=== PATIENT | male | born 1955 | race Caucasian/White ===

== ENCOUNTER 2016-10-10 20:06 | Emergency (ER) | payer SELFPAY ==
[~2016-10-10] VITALS: Ht 182.9 cm; Wt 113.0 kg
[~2016-10-10 20:06] MED LIST: ALBU2.5I INH; ALBU6.7H INH; ATEN-102 PO; AZEL0.05; DULE100A PO; FURO1TAB93 PO; LISI-366 PO; OMEP40CA2 PO; PAXI20TA PO; POTA20TA3 PO; Z.0.OXYGEN INH; ZOFR4TAB3 PO
[2016-10-10 20:17] VITALS: BP 117/79; PULSE 79; RESP 18; TEMP 99.2; O2SAT 95
[2016-10-10] MEDS ORDERED: LISI40TA PO (20:35)
[2016-10-10] MEDS ORDERED: ASPI325T PO (20:35)
[2016-10-10] MEDS ORDERED: DULE200A INH (20:35)
[2016-10-10] MEDS ORDERED: OMEP40CA2 PO (20:35)
[2016-10-10] MEDS ORDERED: FURO40TA PO (20:35)
[2016-10-10] MEDS ORDERED: ALBU6.7H INH (20:35)
[2016-10-10] MEDS ORDERED: ATEN50TA PO (20:35)
[2016-10-10] MEDS ORDERED: ALBU0.08 NEB (20:35)
[2016-10-10] MEDS ORDERED: CEPH-460 PO (20:51)
[2016-10-10] MEDS ORDERED: IBUP800T23 PO (20:51)
--- NOTE | 2016-10-10 20:52 | PD ---
HPI Chief Complaint: Laceration/Skin Injury Time Seen by Provider: 20:49 Travel History International Travel<30 days: No Contact w/Intl Traveler<30days: No Traveled to known affect area: No History of Present Illness HPI 61-year-old male presents emergency Department with complaint of laceration to his left thumb obtained from a plastic wrap box. He stuck his hand into a drawer and sliced his thumb on the plastic wrap cutter. Paresthesias, loss of sensation or decreased range of motion, decreased strength to the affected finger. Denies fever, chills, nausea, vomiting. Does not know if he is up-to- date on his tetanus vaccination. Has not taken any medications to alleviate his symptoms. Has applied pressure to control bleeding. Denies allergies. No other modifying factors or associated signs and symptoms. PFSH Past Medical History Arthritis: No Asthma: No Anxiety: Yes Depression: Yes Heart Rhythm Problems: No Cancer: No High Cholesterol: Yes Chemotherapy: No Chest Pain: No Congestive Heart Failure: No COPD: Yes Diminished Hearing: No Endocrine: No Gastrointestinal Disorders: Yes GERD: Yes Genitourinary: No Hepatitis: No Hiatal Hernia: No Hypertension: Yes Immune Disorder: No Musculoskeletal: No Neurologic: No Psychiatric: Yes Reproductive: No Respiratory: Yes (COPD) Immunizations Current: Yes Radiation Therapy: No Sleep Apnea: Yes (POSSIBLY) Ulcer: No Tetanus Vaccination: < 5 Years Influenza Vaccination: Yes Past Surgical History Abdominal Surgery: No Body Medical Devices: NONE Cardiac Surgery: No Ear Surgery: No Endocrine Surgery: No Eye Surgery: No Genitourinary Surgery: No Gynecologic Surgery: No Oral Surgery: No Thoracic Surgery: No Other Surgery: Yes (FACE/NECK RECONSTRUCTION) Social History Alcohol Use: Yes (Socially) Tobacco Use: Yes (Occ.) Substance Use: No Allergies-Medications (Allergen,Severity, Reaction): Coded Allergies: No Known Allergies (Unverified , 10/10/16) Reported Meds & Prescriptions Reported Meds & Active Scripts Active Ibuprofen 800 Mg Tab 800 Mg PO Q6HR PRN Keflex (Cephalexin) 500 Mg Cap 500 Mg PO Q8H 7 Days Reported Aspirin 325 Mg Tab 325 Mg PO DAILY Omeprazole 40 Mg Cap 40 Mg PO DAILY Lisinopril 40 Mg Tab 40 Mg PO DAILY Furosemide 40 Mg Tab 40 Mg PO DAILY Dulera 120 Act Inh (Mometasone-Formoterol 120 Act Inh) 200-5 Mcg/Act Inh 2 Puff INH DAILY Atenolol 50 Mg Tab 50 Mg PO DAILY Proventil Hfa 6.7 GM Inh (Albuterol Sulfate) 90 Mcg/Act Aer 2 Puff INH Q6H PRN Albuterol Neb (Albuterol Sulfate) 2.5 Mg/3 Ml Neb 2.5 Mg NEB DAILY Review of Systems Except as stated in HPI: all other systems reviewed are Neg Physical Exam Narrative GENERAL: Well-nourished, well-developed male patient, in no acute distress SKIN: Warm and dry. Approximately 2.5 cm laceration to the dorsal aspect of the left thumb between the MCP and PIP joint; without erythema, edema; minimal bright red drainage. Left thumb with full range of motion and sensory intact and with good opposition. Left upper extremity supple and nontender 2+ radial pulses and sensory intact. HEAD: Atraumatic. Normocephalic. EYES: Pupils equal and round. No scleral icterus. No injection or drainage. ENT: Mucosa pink and moist. Airway patent. NECK: Trachea midline. CARDIOVASCULAR: Regular rate. RESPIRATORY: No accessory muscle use. GASTROINTESTINAL: Obese. MUSCULOSKELETAL: No obvious deformities. No clubbing. No cyanosis. No edema. NEUROLOGICAL: Awake and alert. Oriented 3. No obvious cranial nerve deficits. Motor grossly within normal limits. Normal speech. PSYCHIATRIC: Appropriate mood and affect; insight and judgment normal. Data Data Last Documented VS Vital Signs Date Time Temp Pulse Resp B/P Pulse Ox O2 Delivery O2 Flow Rate FiO2 10/10/16 20:17 99.2 79 18 117/79 95 Orders Bupivacaine Pf 0.5% Inj (Marcaine Pf 0.5 (10/10/16 21:00) Lidocaine 1% Inj (50 Ml) (Xylocaine 1% I (10/10/16 21:00) Tetanus/Diphtheria Tox Adult (Tetanus/Di (10/10/16 21:00) MDM Medical Decision Making Medical Screen Exam Complete: Yes Emergency Medical Condition: Yes Medical Record Reviewed: Yes Differential Diagnosis Laceration, contusion, abrasion Narrative Course 61-year-old male with laceration to the dorsal aspect of his left thumb between the MCP and PIP joints. See my procedure note for laceration repair. Tetanus updated in the ER. Keflex and ibuprofen prescribed for home. Patient is medically cleared and stable for discharge. Discussed reasons to return to the emergency department. Instructed patient to follow up with primary care provider. Patient agrees with treatment plan. The patients vital signs are stable and the patient is stable for outpatient follow-up and treatment. Patient discharged home, stable and in no acute distress. Procedures Procedure Narrative LACERATION LOCATION: Dorsal aspect of left thumb between the MCP and PIP joint LENGTH: 2.5 cm NUMBER OF STITCHES/PATO: 6 sutures; simple interrupted REPAIR: The area of the laceration was prepped with Betadine and sterilely draped. The left thumb was digitally blocked with 1% lidocaine and 0.5% bupivacaine. The wound was copiously irrigated and explored without evidence of foreign body , tendon injury or neurovascular injury. The wound was closed using 4-0 Prolene. This was a single layer repair. A sterile dressing was applied. The patient was advised to keep the dressing clean and dry. Patient tolerated the procedure well. Diagnosis Primary Impression: Laceration of left thumb Qualified Code: S61.012A - Laceration of left thumb, initial encounter Referrals: Primary Care Physician Patient Instructions: Care For Your Stitches (ED), Finger Laceration (ED), General Instructions Additional Instructions: Keep area clean and dry Limit left thumb activity to decrease risk of sutures coming undone Tylenol as directed and as needed for pain and inflammation Ice pack to area as needed to decrease pain Return to the emergency department or follow-up with her primary care provider in 7-10 days for suture removal Follow up with primary care provider within 2-4 days Return to the emergency department immediately with worsening of symptoms, particularly if reddened streaks up or down the affected extremity from the suture site, fever, numbness/tingling in the affected extremity, loss of sensation in the affected extremity, severe swelling of the affected Med/Other Pt SpecificInfo: Prescription(s) given Scripts Ibuprofen 800 Mg [id number] Mg PO Q6HR PRN (PAIN) #30 TAB Ref 0 Prov:Marysol Ramesh 10/10/16 Cephalexin (Keflex)500 Mg [id number] Mg PO Q8H 7 Days Ref 0 Prov:Marysol Ramesh 10/10/16 Disposition: 01 DISCHARGE HOME Condition: Stable Marysol Ramesh Oct 10, 2016 20:52
[2016-10-10] MEDS ORDERED: BUPIVACAINE HCL PF 0.5% 10 ML VIAL INFIL ONE (21:00)
[2016-10-10] MEDS ORDERED: TETANUS/DIPHTHERIA TOXOID ADULT 0.5 ML VIAL IM ONE (21:00)
[2016-10-10] MEDS ORDERED: LIDOCAINE HCL 1% 50 ML VIAL INFIL ONE (21:00)
[2017-04-03] MEDS ORDERED: OXYC1TAB63 PO (12:54)
== END 2016-10-10 22:30 | disposition home or self-care (01) ==
LOC: PHEFT 20:06
DX: S61.012A Laceration without foreign body of left thumb without damage to nail, initial encounter (principal); I10 Essential (primary) hypertension; E78.00 Pure hypercholesterolemia, unspecified; Z23 Encounter for immunization; Z87.09 Personal history of other diseases of the respiratory system; Z87.19 Personal history of other diseases of the digestive system; Z72.0 Tobacco use; W45.8XXA Other foreign body or object entering through skin, initial encounter
CPT/HCPCS: 12001; 90471; 90714

== ENCOUNTER → 2016-12-14 | Outpatient (CLI) | payer BC ==
[~2016-12-14] MED LIST changes: +ALBU0.08 NEB; -ALBU2.5I INH; +ASPI325T PO; -ATEN-102 PO; +ATEN50TA PO; -AZEL0.05; +CEPH-460 PO; -DULE100A PO; +DULE200A INH; -FURO1TAB93 PO; +FURO40TA PO; +IBUP800T23 PO; -LISI-366 PO; +LISI40TA PO; +OXYC1TAB63 PO; -PAXI20TA PO; -POTA20TA3 PO; -Z.0.OXYGEN INH; -ZOFR4TAB3 PO
--- NOTE | 2016-12-28 09:46 | RSPPFT ---
DATE OF PROCEDURE: 12/14/16 COMMENTS: Spirometry with FVC of 3.7, FEV1 of 2.6, FEV1/FVC ratio at 69%. A positive and significant response to acutely inhaled bronchodilator noted. No evidence of airways restriction. Diffusion capacity is normal. IMPRESSION: 1. Moderate airways obstruction. 2. Positive and significant response to acutely inhaled bronchodilator.
== END ==
LOC: HRSP 08:21
PROVIDERS: ATTEND Internal Medicine Sleep Medicine
DX: R06.89 Other abnormalities of breathing (principal)
CPT/HCPCS: 94060; 94726; 94729

== ENCOUNTER → 2017-04-03 | Day surgery (SDC) | payer BC ==
[~2017-04-03] VITALS: Ht 182.9 cm; Wt 120.0 kg
[~2017-04-03] MED LIST changes: +ACETAMINOPHEN 1000 MG/100 ML VIAL IV SCH; +BUPIVACAINE HCL PF 0.5% 30 ML VIAL ONE; +BUPIVACAINE LIPOSOME PF 1.3% 20 ML VIAL ONE; +CHLORHEXIDINE GLUCONATE 2 % 1 PACK (2 CLOTHS) TOPICAL PRN; +DEXAMETHASONE SOD PHOS 4 MG/ML VIAL ONE; +DEXAMETHASONE SOD PHOS PF 10 MG/ML VIAL IV ONE; +FAMOTIDINE 20 MG/2 ML VIAL ONE; +FUROSEMIDE 20 MG/2 ML VIAL ONE; +INSULIN HUMAN REGULAR 1,000 UNITS/10 ML VIAL SQ PRN; +LACTATED RINGER'S 1000 ML INJ 1,000 ML IV ONE; +LACTATED RINGER'S 1000 ML IV PRN; +METOCLOPRAMIDE HCL 10 MG/2 ML VIAL ONE; +METOPROLOL TARTRATE 25 MG TAB PO PRN; +MIDAZOLAM HCL 2 MG/2 ML VIAL ONE; +MORPHINE SULFATE 4 MG/ML INJ IV PRN; +NEOSTIGMINE 3 MG/3 ML SYR IV ONE; +ONDANSETRON HCL 4 MG/2 ML VIAL IV PRN; +ONDANSETRON HCL 4 MG/2 ML VIAL IV PUSH ONE; +POVIDONE IODINE 5% (ANTISEPSIS KIT) 4 APPLICATIONS EACH NARE PRN; +PROPOFOL 200 MG/20 ML AMP IV ONE; +SODIUM CHLORID 0.9% 500 ML IV PRN; +SODIUM CHLORIDE 0.9% FLUSH 10 ML FLUSH IV FLUSH PRN; +SODIUM CHLORIDE 0.9% FLUSH 10 ML FLUSH IV FLUSH SCH; +ceFAZolin 2 GM PREMIX 50 ML IV SCH; +ePHEDrine/NS 25 MG/5 ML SYR IV ONE; +fentaNYL CITRATE 250 MCG/5 ML AMP ONE; +methylPREDNISolone SOD SUCC 125 MG/2 ML VIAL ONE; +oxyCODONE/ACETAMINOPHEN 5 MG/325 MG TAB PO PRN
[2017-04-03 08:27] VITALS: BP 136/74; PULSE 55; RESP 18; TEMP 98.9; O2SAT 96
--- NOTE | 2017-04-03 13:06 | PD.OP ---
cc: Mitchell Del Toro MD Operative Report Date of Surgery: Apr 03, 2017 Preoperative Diagnosis: (1) Umbilical hernia Postoperative Diagnosis: (1) Umbilical hernia Procedure: Laparoscopic umbilical hernia repair with mesh Anesthesia: GUZMAN Surgeon: Mitchell Del Toro Plodder Operator(s): Autumn Operation and Findings: EBL: 10 cc Operative findings: The patient had a 1 x 2 cm umbilical hernia associated with morbid obesity. Procedure in detail: The patient was taken to the operating room and placed supine position. Gen. endotracheal anesthesia was induced. The abdomen was prepped and draped in usual sterile fashion and a surgical timeout was performed to verify correct patient procedure and site. Appropriate perioperative antibiotics were administered. In the left upper quadrant 15 mm incision was made and dissection carried out down to the underlying fascia bluntly. The external oblique fascia was sharply incised. The posterior layer was divided bluntly with a hemostat and the peritoneum was entered with my finger. The 10 mm GelPort balloon trocar was placed and the abdomen insufflated to 15 mmHg with CO2 gas which the patient tolerated well. In the left lower abdomen 5 mm incision was made after infiltration with local anesthetic and a 5 mm port placed. Another 5 mm port was placed in the suprapubic region and one in the left upper quadrant. Attention was turned to the umbilicus. There was a proximally 1 x 2 cm umbilical defect. Preperitoneal fat was reduced. Fatty tissue superior to the umbilicus and a portion of the falciform ligament was taken down using the Harmonic scalpel. The fatty tissue just lateral to the umbilical hernia defect and also inferiorly was also taken down to expose the perineum or posterior fascia. A 15 x [address] mesh with the echo deployment system was chosen. This was rolled appropriately and placed into the abdomen. The catheter was brought out through a separate stab incision just superior to the umbilical defect. The echo device was inflated and the mesh brought up to the anterior abdominal wall. Insufflation was turned down to 11 mmHg. There was wide coverage greater than 5 cm in each direction of the umbilical defect. The mesh was sutured in place with the Capsure tacker device around the border and then the structural device was removed. Tacks were then placed throughout the mesh. There was wide coverage of the entire fascial defect. There was good hemostasis. At this point the abdomen was allowed to desufflate and trochars were removed. The fascia at the left upper quadrant incision was closed with 0 Vicryl sutures. The skin was closed with subcuticular 4-0 Monocryl suture as well as Dermabond. An abdominal binder was placed. The patient tolerated the procedure well was extubated and taken to PACU in stable condition. Mitchell Del Toro MD Apr 03, 2017 13:06
[2017-04-03 14:30] VITALS: BP 147/79; PULSE 75; RESP 18; TEMP 98.1; O2SAT 96
== END | disposition home or self-care (01) ==
LOC: HSDC 07:46
PROVIDERS: ATTEND Surgery
DX: K42.9 Umbilical hernia without obstruction or gangrene (principal); I10 Essential (primary) hypertension; E78.5 Hyperlipidemia, unspecified; Z98.1 Arthrodesis status
CPT/HCPCS: 00752; 49652; C1781; C9290; J0131; J0690; J1100; J1940; J2250; J2270; J2405; J2710; J2765; J2930; J3010; J7120